=== PATIENT | female | born 1955 | race African-American/Black ===

== ENCOUNTER 2024-11-17 11:57 | Emergency (ER) | payer OTHER ==
[~2024-11-17] VITALS: Ht 172.7 cm; Wt 113.0 kg
[2024-11-17 11:57] VITALS: O2SAT 100
[2024-11-17 13:52] VITALS: TEMP 36.7
[2024-11-17] MEDS: TETANUS, DIPHTHERIA, PERTUSSIS VAC/PF 0.5ML (>10YR OLD) IM ONE (13:54)
[2024-11-17] MEDS: ACETAMINOPHEN 325MG TABLET PO ONE (13:55)
[2024-11-17 15:49] VITALS: BP 185/62; PULSE 74; RESP 19; O2SAT 100
== END 2024-11-17 15:50 | disposition home or self-care (01) ==
LOC: ER 11:57
DX: S09.8XXA Other specified injuries of head, initial encounter (principal); I10 Essential (primary) hypertension; W01.0XXA Fall on same level from slipping, tripping and stumbling without subsequent striking against object, initial encounter; Y93.89 Activity, other specified; Y92.89 Other specified places as the place of occurrence of the external cause; Y99.8 Other external cause status
CPT/HCPCS: 90471; 90715; 99285